=== PATIENT | female | born 1945 | race Caucasian/White ===

== ENCOUNTER 2021-01-09 15:31 | Emergency (ER) | payer OTHER ==
[2021-01-09 15:50] VITALS: TEMP 98; BMI 30.2
[2021-01-09 16:59] VITALS: BP 109/70; PULSE 77
[2021-01-09 19:21] LABS: BASO % 0.2 % (0-2.0); EOS % 0.2 % (0-4.5); HEMATOCRIT 38.4 % (32.4-45.2); HEMOGLOBIN 12.9 GM/dL (10.7-15.3); LYMPH % 9.5 % (8-40); MCH 30.9 pg (25.7-33.7); MCHC 33.5 g/dl (32.0-36.0); MEAN CELL VOLUME 92.2 fl (80-96); MEAN PLT VOLUME 8.1 fl (7.5-11.1); MONO % 3.6 % (3.8-10.2); NEUT % 86.5 % (42.8-82.8); PLATELET COUNT 238 10^3/uL (134-434); RBC 4.17 M/mm3 (3.60-5.2); WHITE BLOOD COUNT 12.6 K/mm3 (4.0-10.0)
[2021-01-09 19:36] LABS: CHLORIDE 110 mmol/L (98-107); SODIUM 142 mmol/L (136-145)
[2021-01-09 19:38] LABS: CALCIUM 8.9 mg/dL (8.5-10.1)
[2021-01-09 19:39] LABS: ALBUMIN 3.3 g/dl (3.4-5.0); ANION GAP 6 MMOL/L (8-16); BLOOD UREA NITROGEN 17.7 mg/dL (7-18); CO2 26 mmol/L (21-32); GLUCOSE,RANDOM 148 mg/dL (74-106)
[2021-01-09 19:42] LABS: CREATININE 0.8 mg/dL (0.55-1.3); SGOT/AST 20 U/L (15-37); SGPT/ALT 23 U/L (13-61)
[2021-01-09 19:44] LABS: BILIRUBIN,TOTAL 0.3 mg/dL (0.2-1); TOT PROT 6.8 g/dl (6.4-8.2)
[2021-01-09 19:45] LABS: ALK PHOS 83 U/L (45-117)
== END 2021-01-09 20:19 | disposition home or self-care (01) ==
LOC: JER 15:31
DX: R55 Syncope and collapse (principal); I95.9 Hypotension, unspecified
CPT/HCPCS: 36415; 80053; 82550; 84484; 85025; 93005; 93010; 99283-25